=== PATIENT | male | born 1970 | race American Indian/Alaskan Native ===

== ENCOUNTER 2019-01-20 11:03 | Day surgery (SDC) | payer OTHER ==
[2019-01-20] MEDS ORDERED: HEPARIN SUB-Q NR (11:45)
[2019-01-20] MEDS ORDERED: DILAUDID IV PRN (11:48)
--- NOTE | 2019-01-20 11:48 | Anesthesia Day of Surgery ---
Anesthesia Day of Surgery - Day of Surgery Patient Examined: Yes Patient H&P Reviewed: Yes Patient is NPO: Yes
--- NOTE | 2019-01-20 11:48 | Anesthesia Consultation ---
Anesthesia Consult and Med Hx Date of service: 01/20/19 - Airway Anesthetic Teeth Evaluation: Good ROM Head & Neck: Adequate Mental/Hyoid Distance: Adequate Mallampati Class: Class III Intubation Access Assessment: Possibly Difficult - Pulmonary Exam CTA: Yes - Cardiac Exam Cardiac Exam: RRR - Pre-Operative Health Status ASA Pre-Surgery Classification: ASA2 Proposed Anesthetic Plan: General, MAC - Pre-Anesthesia Comment Pre-Anesthesia Comments: GA vs MAC pending discussion with surgeon regarding extent of intended procedure. - Pulmonary Hx Smoking: Yes (former smoker quit 3 months ago) Hx Respiratory Symptoms: No - Cardiovascular System Hx Hypertension: No - Central Nervous System CVA: No Hx Psychiatric Problems: Yes (anxiety/PTSD) - Gastrointestinal Hx Gastroesophageal Reflux Disease: No - Endocrine Hx Renal Disease: No Hx Liver Disease: No Hx Insulin Dependent Diabetes: No Hx Non-Insulin Dependent Diabetes: No Hx Thyroid Disease: No - Other Systems Hx Obesity: No - Additional Comments Anesthesia Medical History Comments: No hx anesthetic complications.
[2019-01-20] MEDS ORDERED: LACTATED RINGERS 1,000 ML IV SCH (12:00)
[2019-01-20] MEDS ORDERED: ANCEF/STERILE WATER 2 GM/20 ML IV NR (12:00)
[2019-01-20] MEDS ORDERED: VERSED IV NR (12:00)
[2019-01-20] MEDS ORDERED: DIPRIVAN 10 MG/ML IV ONE ×6 (12:46→14:31)
[2019-01-20] MEDS ORDERED: SUBLIMAZE ONE (12:46)
[2019-01-20] MEDS ORDERED: VERSED IV ONE (12:46)
[2019-01-20] MEDS ORDERED: DEXMEDETOMIDINE IV ONE (12:49)
[2019-01-20] MEDS ORDERED: MARCAINE 0.25% INFILTRATI ONE ×3 (13:14→13:35)
[2019-01-20] MEDS ORDERED: XYLOCAINE 1% 20 mL ONE (13:14)
[2019-01-20] MEDS ORDERED: ZOFRAN ONE (13:26)
[2019-01-20] MEDS ORDERED: TORADOL ONE (13:26)
[2019-01-20] MEDS ORDERED: NACL 0.9% 1000 ML 1,000 ML ONE (14:28)
[2019-01-20] MEDS ORDERED: DILAUDID ONE (14:30)
[2019-01-20] MEDS ORDERED: ROBINUL ONE (14:30)
--- NOTE | 2019-01-20 14:46 | Post Operative Note ---
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
--- NOTE | 2019-01-20 14:58 | Procedure Note ---
Date of procedure: 01/20/19 Pre-op diagnosis: 1) Right infraclavicular lipoma, 4.5 cm 2) Right AC jt ganglion cyst, 3.2 c Post-op diagnosis: same Procedure: Excision of right infraclavicular lipoma, 4.5 cm and right AC joint ganglion cyst, 3.2 cm Description of procedure: Pt was placed supine on the OR table. MAC anesthesia was administered. Skin over the lipoma was infiltrated with 4 ml of 0.25% Marcaine with epinephrine. Skin was incised. The lipoma was excised with sharp and electrocautery dissection. Hemostasis was obtained with the Bovie. Wound was closed with a running subcuticular suture of 4-0 Monocryl and a running 4-0 Nylon. Skin over the right AC joint mass was infiltrated with an additional 4 ml of 0.25% Marcaine with epinephrine. Skin was incised. A ganglion cyst was identified. The cyst was excised with sharp and Bovie dissection. Hemostasis was obtained with the Bovie. Skin was approximated identically as the right infraclavicular wound. Both incisions were dressed with fluffed 4X4's and Tegaderm. Pt tolerated the procedure well. Pt was taken to PACU in stable condition. Anesthesia: MAC Surgeon: EARNESTINE YARBROUGH Estimated blood loss: 50-100ml Pathology: list (1) Right infraclavicular lipoma 2) Right AC joint ganglion cyst) Specimen disposition: to lab Condition: stable Disposition: PACU
[2019-01-20 15:46] VITALS: BP 116/78
--- NOTE | 2019-01-20 18:34 | Post Anesthesia Evaluation ---
- Post Anesthesia Evaluation Patient Participated: Yes Airway Patent: Yes Stable Respiratory Function: Yes Nausea/Vomiting: No Temp > 96.8F: Yes Pain Manageable: Yes Adequeate Hydration: Yes Anesthesia Complications: No Block Receding Appropriately: Not Applicable Patient on Ventilator: No
[2019-01-21] MEDS ORDERED: LACTATED RINGERS 1,000 ML IV SCH (07:00)
== END 2019-01-20 11:04 | disposition home or self-care (01) ==
LOC: OR 11:03
PROVIDERS: ATTEND Surgery
DX: D17.1 Benign lipomatous neoplasm of skin and subcutaneous tissue of trunk (principal); M67.411 Ganglion, right shoulder; M19.90 Unspecified osteoarthritis, unspecified site; F32.9 Major depressive disorder, single episode, unspecified; F41.9 Anxiety disorder, unspecified; Z87.891 Personal history of nicotine dependence; Z79.899 Other long term (current) drug therapy; Z98.890 Other specified postprocedural states
CPT/HCPCS: 21552; 23076; 88304; J1170; J1644; J1885; J2250; J2405; J2704; J3010; J3490; J7030; J7120